=== PATIENT | female | born 2000 | race Hispanic/Latino ===

== ENCOUNTER 2021-12-11 12:16 | Emergency (ER) | payer SELFPAY ==
--- NOTE | ~2021-12-11 | CT_ITS ---
EXAMINATION: CT abdomen pelvis w con DATE: 12/11/2021 16:11 INDICATION: Epigastric abdominal pain. Left lower quadrant abdominal pain. Suprapubic pain. Nausea an d vomiting. TECHNIQUE: Computed tomography (CT) of the abdomen and pelvis was performed with 100 mL Omnipaque 300 intravenous contrast. Automated exposure control and iterative reconstruction technique were employe d. The dose-length product was 556.94 mGy-cm. COMPARISON: None. FINDINGS: The visualized portions of the lung bases are clear without pneumonia or pleural effusion. The heart size is normal. No pericardial effusion. The liver, gallbladder, spleen, pancreas, adrenal glands, and kidneys are normal. There are no dilated loops of bowel. The appendix is normal. There ar e no pathologically enlarged lymph nodes. There is physiologic fluid in the pelvis. There are benign bone islands in the pelvis and proximal left femur. IMPRESSION: 1. No etiology for the patient's symptoms. Reviewed, dictated and finalized at location A.
[2021-12-11 12:21] VITALS: BP 112/50; PULSE 71; RESP 18; TEMP 36.6; O2SAT 100
[2021-12-11 12:49] LABS: Appearance Urine Clear (Clear); Basophils Percent Auto 0.7 % (0.2-1.2); Bilirubin Urine Negative (Negative); Blood Urine Negative (Negative); Color Urine Yellow (Yellow); Eosinophils Percent Auto 0.5 % (0-4.4); Glucose Urine UA Negative (Negative); Hematocrit 43.3 % (37.0-47.0); Hemoglobin 14.4 g/dL (12.0-15.0); Immature Granulocyte Absolute 0.02 K/mm3 (0.00-0.031); Immature Granulocyte Percent A 0.3 % (0-0.5); Ketones Urine Negative (Negative); Leukocyte Esterase Ur Trace LEU/UL (Negative); Lymphocytes Absolute Auto 1.12 K/mm3 (0.9-3.2); Lymphocytes Percent Auto 18.2 % (18.3-44.2); Mean Corpuscular HGB Conc 33.3 g/dl (32-36); Mean Corpuscular Hemoglobin 30.1 pg (26-34); Mean Corpuscular Volume 90.4 fl (80-100); Mean Platelet Volume 9.7 fl (7.4-10.4); Monocytes Absolute Auto 0.4 K/mm3 (0.1-0.6); Monocytes Percent Auto 6.2 % (2.6-8.5); Neutrophils Absolute Auto 4.6 K/mm3 (1.3-6.7); Neutrophils Percent Auto 74.1 % (45.5-73.1); Nitrate Urine Negative (Negative); Platelet Count Result 347 k/mm3 (150-375); Protein Urine Negative (Negative); Red Blood Count 4.79 M/mm3 (4.2-5.4); Red Cell Distribution Width 12.1 % (11.5-14.5); Specific Grav Ur 1.015 (1.001-1.035); Urobilinogen Urine 0.2 mg/dL (<2.0); White Blood Count 6.1 K/mm3 (4.5-10.0)
[2021-12-11 12:57] LABS: Squamous Epithelial Cell Urine Occasional /hpf (Few)
[2021-12-11 12:58] LABS: Add Urine Microscopic? YES
[2021-12-11 13:04] LABS: Alanine Aminotransferase 23 U/L (6-35); Alkaline Phosphatase 80 U/L (38-126); Anion Gap 9 mmol/L (8-16); Aspartate Amino Transferase 33 U/L (14-36); Bilirubin,Total 0.7 mg/dL (0.2-1.3); Blood Urea Nitrogen 11 mg/dL (7-17); Calcium 9.7 mg/dL (8.4-10.2); Carbon Dioxide 27 mmol/L (22-30); Chloride 104 mmol/L (98-107); Estimated CRCL calculation 106 ml/min; Estimated Glomerular Filt Rate > 60; Glucose 90 mg/dL (65-110); Lipase 63 U/L (23-300); Potassium 4.4 mmol/L (3.4-5.0); Sodium 140 mmol/L (137-145)
--- NOTE | 2021-12-11 14:54 | ED.ABDPAIN ---
HPI - Abdominal Pain General Chief Complaint: Abdominal Pain Stated Complaint: abd pain Time Seen by Provider: 12/11/21 14:54 Source: patient Mode of arrival: ambulatory Limitations: no limitations History of Present Illness HPI narrative: Patient is a 21-year-old female who presents the ED with report of epgiastric ABD pain. Patient is primarily speaking. [employer] freelance interpreter/translator was utilized for assistance in translation. Patient reports having pain in her epigastric abdomen since Wednesday. She has taken Ibuprofen at home for pain without relief. She also reports having N/V, anorexia. Denies any diarrhea, constipation, fever, chills, urinary symptoms. She went to urgent care today and was referred to the ED for further evaluation. Related Data Allergies Allergy/AdvReac Type Severity Reaction Status Date / Time No Known Allergies Allergy Verified 12/11/21 14:54 Review of Systems Review of Systems: CONSTITUTIONAL: Reports anorexia. Denies fever, chills, or sweats. CARDIOVASCULAR: Denies chest pain. RESPIRATORY: Denies dyspnea. GASTROINTESTINAL: Reports epigastric ABD pain, N/V. Denies constipation, diarrhea. GENITOURINARY: Denies dysuria or hematuria. MUSCULOSKELETAL: Denies back pain. NEUROLOGIC: Denies headache, numbness, or weakness. All systems reviewed & are unremarkable except as noted in HPI and below PMFSH Past Medical History Medical History (Updated 12/11/21 @ 17:54 by Lakshmi Ronquillo PA-C) No pertinent past medical history Surgical History Surgical History (Updated 12/11/21 @ 16:16 by Lakshmi Ronquillo PA-C) No pertinent past surgical history Social History Social History (Updated 12/11/21 @ 16:16 by Lakshmi Ronquillo PA-C) Smoking status: Never smoker Exam Narrative: GENERAL: Well appearing, well-nourished, non-toxic, in no acute distress. HEAD: Normocephalic, atraumatic. NECK: Supple. No adenopathy, no masses. RESPIRATORY: Airway patent, respirations nonlabored. Clear to auscultation bilaterally, no rales, rhonchi, wheezing. CARDIOVASCULAR: Regular rate and rhythm without murmurs, rubs, or gallops. Peripheral pulses 2+ and equal bilaterally. ABDOMINAL: Soft, mild TTP in epigastric region, suprapubic region, LLQ. Nondistended, no hepatosplenomegaly. Normoactive BS. MUSCULOSKELETAL: Moves all extremities. Strength/ROM intact without gross deformities. SKIN: Warm, dry, normal color. No rashes. NEURO: A&O X3. Speech clear. Cranial nerves II-XII grossly intact. Steady gait. No ataxic movements. PSYCHIATRIC: Appropriate mood and affect. Normal interaction. Course Vital Signs Vital signs: Vital Signs Temperature 97.9 F 12/11/21 12:21 Pulse Rate 71 12/11/21 12:21 Respiratory Rate 18 12/11/21 12:21 Blood Pressure 112/50 L 12/11/21 12:21 Pulse Oximetry 100 12/11/21 12:21 Oxygen Delivery Room Air 12/11/21 12:21 Temperature 97.9 F 12/11/21 12:21 Pulse Rate 71 12/11/21 12:21 Respiratory Rate 18 12/11/21 12:21 Blood Pressure 112/50 L 12/11/21 12:21 Pulse Oximetry 100 12/11/21 12:21 Oxygen Delivery Room Air 12/11/21 12:21 MDM - Abdominal Pain MDM Narrative Medical decision making narrative: Patient presented to ED with 3-day history of abdominal pain, nausea vomiting. Vital signs stable upon arrival. Patient nontoxic-appearing in no acute distress. Mild tenderness to palpation in epigastric region on exam. Laboratory evaluation unremarkable. No leukocytosis. CT abdomen pelvis without acute findings. UA with possible infection versus contamination. Showing trace leuks, 7-9 WBCs. Patient without urinary symptoms at this time. Discussed with her that urine will be sent for culture. She would like to wait for culture results to determine if she needs antibiotic treatment. She is feeling better with supportive therapy. She will be discharged home at this time. Ondina sent to pharmacy for symptom relief at home. She was given on-call prim
[2021-12-11] MEDS: ONDANSETRON INJ 4 MG/2 ML VIAL IV PUSH (15:49)
[2021-12-11] MEDS: DICYCLOMINE HCL 10 MG CAPSULE 20 MG PO (16:41)
[2021-12-11] MEDS: KETOROLAC 30 MG/ML VIAL (*BKC) IV PUSH (16:42)
== END 2021-12-11 18:06 | disposition home or self-care (01) ==
PROVIDERS: Emergency Medicine; Emergency Provider General Practice
DX: R10.84 Generalized abdominal pain (principal); R11.2 Nausea with vomiting, unspecified
CPT/HCPCS: 36415; 74177; 80053; 81001; 81025; 83690; 85025; 87077; 87086; 87186; 96365; 96375; 99284; A9270; J0131; J1885; J2405; Q9967